=== PATIENT | male | born 1985 | race African-American/Black ===

== ENCOUNTER 2019-02-02 01:19 | Emergency (ER) | payer OTHER ==
[~2019-02-02] VITALS: Ht 182.9 cm; Wt 61.2 kg
[~2019-02-02 01:19] MED LIST: ABX; ASACOL HD800 MG PO; AZATHIOPRINE50 MG PO; MEDROL DOSPAK21 TAB PO; NOHOMEMEDICATIONS; NORCO 5-325 TA1 EACH PO; PENICILLIN VK500 M1 PO; PEPCID20 MG PO; PHENERGAN 25 MG25 M1 PO; PREDNISONE 10 M10 MG; PREDNISONE 20 M20 MG PO; ZOFRAN ODT4 MG PO; [UNRECOGNIZED DRUG - OTHER]
[2019-02-02] MEDS ORDERED: IBUPROFEN 600600 M1 PO (03:08)
[2019-02-02] MEDS ORDERED: SENNA-DOCUSATE1 EAC1 PO (03:08)
[2019-02-02] MEDS ORDERED: NORCO 5-325 TA1 EAC1 PO (03:08)
[2019-02-02 03:20] VITALS: BP 114/81
== END 2019-02-02 03:20 | disposition home or self-care (01) ==
LOC: ER 01:19
DX: S92.351A Displaced fracture of fifth metatarsal bone, right foot, initial encounter for closed fracture (principal); K50.90 Crohn's disease, unspecified, without complications; F17.210 Nicotine dependence, cigarettes, uncomplicated; W21.01XA Struck by football, initial encounter; Y93.61 Activity, american tackle football; Y92.39 Other specified sports and athletic area as the place of occurrence of the external cause; Y99.8 Other external cause status